=== PATIENT | female | born 1970 | race Hispanic/Latino ===

== ENCOUNTER 2024-10-16 16:22 | Emergency (ER) | payer OTHER ==
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
[2024-10-16 18:18] VITALS: BP 156/88; O2SAT 99
== END 2024-10-16 17:31 | disposition home or self-care (01) ==
LOC: ER 16:22
DX: S33.5XXA Sprain of ligaments of lumbar spine, initial encounter (principal); V44.5XXA Car driver injured in collision with heavy transport vehicle or bus in traffic accident, initial encounter
CPT/HCPCS: 99283